=== PATIENT | male | born 1960 | race Caucasian/White ===

== ENCOUNTER 2020-10-06 16:00 | Outpatient (CLI) | payer BC, SELFPAY ==
--- NOTE | 2020-10-27 11:36 | WPDHOMESLEEP ---
Sleep Study - Home Unattended Date of Study: 10/06/20 Ordering Provider: Jak Alvarez PA-C Interpreting Provider: Smiley Morales MD Home Sleep Study Type: Apnea Link Air Height: 1.75 m Weight: 92.986 kg Body Mass Index: 30.2 Neck Circumference (inches): 16 [place]: 20 Reason for Sleep Study loud snoring Sleep History Jaya Olguin has loud snoring that is constant and constantly bothers others. His has complained about this for over 4 years. There is a family history with his father having sleep problems. He frequently awakens from sleep feeling short of breath. He never awakens at night with heartburn, belching or coughing. He does not have trouble sleep with a cold. He frequently wakes up gasping for breath during the night. He constantly has breathing problems at night observed by others. He does not sweat excessively night. He rarely notices his heart pounding or beating irregularly night. He frequently falls asleep during the day, constantly falls asleep involuntarily, frequently falls asleep while driving. He does not fall asleep while exerting physical effort. He does not have loss of muscle tone with strong emotion. He rarely has daytime difficulties due to excessive sleepiness. He does not feel paralyzed on waking or falling asleep. He does not have vivid dreamlike scenes upon awakening or falling asleep. He does not feel afraid to go to sleep. He does not have nightmares. He does not remember his dreams. He occasionally has racing thoughts. He does not feel sad or depressed. He frequently feels anxious. He does not have muscular tension. He rarely notices parts of his body jerking. He does not kick at night. He denies crawling and aching feelings in his legs. He does not have leg pain at night. He denies morning jaw pain and does not grind his teeth during sleep. He is not bothered by pain during the day. He is not awakened by pain at night. He does not wake up feeling stiff in the morning with sore achy muscles are pain in his neck and spine. He has sexual dysfunction, he has gained 10 lb in last year. He has hypertension. Normal bedtime is between 8 and 9:00 p.m. falling asleep in 1 minutes waking twice at night to urinate and get a snack. He stays awake for 20 minutes. He returns to sleep and wakes between 3 and 4 in the morning. His weekend schedule is The same. He estimates getting between 5 and 7 hours of sleep on an average night. He takes naps in the afternoon or evening. A short nap is not refreshing. He is drowsy in the morning for 3 hours or longer. He feels better in the afternoon compared other times a day. Habits: Never smoked tobacco. Caffeine 3 large sodas a day. No alcohol or recreational drugs. [facility] Past Medical History Medical History Cardiac murmur, unspecified Finger fracture HSV-1 infection Insomnia with sleep apnea, unspecified Malignant hypertension Neck mass Family History Family History (Updated 10/27/20 @ 11:40 by Smiley Morales MD) Father Family history of malignant neoplasm, Onset Age: 77 Obstructive sleep apnea Other Family history of coronary artery disease Hypertension Social History Social History Smoking status: Never smoker Second hand tobacco smoke exposure: No Alcohol intake: never Substance use: never Substance use type: does not use Gender identity (if verbalized by the patient): Male Medications Home Medications Medication Instructions Recorded Confirmed Type hydrochlorothiazide 12.5 mg capsule 12.5 mg PO DAILY #90 cap 06/21/20 06/21/20 Rx irbesartan 150 mg tablet 150 mg PO DAILY #7 tablet 06/21/20 06/21/20 Rx irbesartan 300 mg tablet 300 mg PO DAILY #90 tablet 06/21/20 06/21/20 Rx metoprolol succinate 100 mg 100 mg PO DAILY #90 tablet 06/21/20 06/21/20 Rx tablet,extended release 24
[2020-10-27 11:45] VITALS: BMI 30.2
== END 2020-10-06 16:06 | disposition home or self-care (01) ==
LOC: ANHCSM 10-11 09:59
PROVIDERS: PCP Physician Assistant; Visit Provider Physician Assistant
DX: G47.39 Other sleep apnea (principal); R40.0 Somnolence
CPT/HCPCS: 95806

== ENCOUNTER → 2021-05-11 01:37 | Outpatient (CLI) | payer BC, SELFPAY ==
[2021-05-11 15:45] LABS: SARS-CoV-2 RNA PCR Negative
== END ==
PROVIDERS: Visit Provider Internal Medicine Critical Care Medicine
DX: Z01.812 Encounter for preprocedural laboratory examination (principal); Z20.822 Contact with and (suspected) exposure to COVID-19
CPT/HCPCS: C9803; U0003; U0005

== ENCOUNTER 2023-12-05 09:15 | Outpatient (CLI) | payer BC, SELFPAY ==
--- NOTE | 2023-12-05 09:23 | EST_ITS ---
Patient Info Name: Jaya Olguin Age: 63 years : 1960 Gender: Male Ht: 69 in Wt: 209 lbs BSA: 2.18 m2 HR: 53 bpm BP: 178 / 96 mmHg Heart Rhythm: Sinus Rhythm Exam Date: 12/05/2023 9:47 AM Exam Location: Echo Lab Patient Status: Outpatient Admit Date: 12/05/2023 Staff Ordering Physician: Nick Wisdom APRN Attending Provider: Nick Wisdom APRN Exercise Technologist: Beckie Cortes CT Exercise Physician: Julien Reynoso DO Exam Type: CA stress test treadmill Study Info A treadmill exercise stress test was performed. Summary 1. 1. Negative Donato exercise stress test for ischemic ST changes by ECG criteria. However, patient achieved only 78% MPHR for age group which reduces sensitivity of the test. 2. 2. Good functional capacity, achieving 9 METs of workload. 3. 3. Baseline hypertension with hypertensive response to exercise. 4. 4. Appropriate HR response to exercise. 5. 5. Appropriate HR recovery at 1 minute post exercise. 6. 6. No imaging with stress testing. 7. 7. Patient informed of the above results. Protocol: Donato Stress ECG Details Stage: REST Duration (min): 2 min : 10 sec Speed (mph): 0.0 Grade (%): 0 HR (bpm): 53 SBP (mmHg): 178 DBP (mmHg): 96 METS: --- Stage: REST Duration (min): 15 min : 52 sec Speed (mph): 0.0 Grade (%): 0 HR (bpm): 59 SBP (mmHg): 178 DBP (mmHg): 96 METS: --- Stage: STAGE 1 Duration (min): 1 min : 0 sec Speed (mph): 1.7 Grade (%): 10 HR (bpm): 73 SBP (mmHg): 178 DBP (mmHg): 96 METS: --- Stage: STAGE 1 Duration (min): 2 min : 0 sec Speed (mph): 1.7 Grade (%): 10 HR (bpm): 85 SBP (mmHg): 178 DBP (mmHg): 96 METS: --- Stage: STAGE 1 Duration (min): 3 min : 0 sec Speed (mph): 1.7 Grade (%): 10 HR (bpm): 91 SBP (mmHg): 205 DBP (mmHg): 116 METS: --- Stage: STAGE 2 Duration (min): 1 min : 0 sec Speed (mph): 2.5 Grade (%): 12 HR (bpm): 102 SBP (mmHg): 205 DBP (mmHg): 116 METS: --- Stage: STAGE 2 Duration (min): 2 min : 0 sec Speed (mph): 2.5 Grade (%): 12 HR (bpm): 103 SBP (mmHg): 215 DBP (mmHg): 88 METS: --- Stage: STAGE 2 Duration (min): 3 min : 0 sec Speed (mph): 2.5 Grade (%): 12 HR (bpm): 110 SBP (mmHg): 215 DBP (mmHg): 88 METS: --- Stage: STAGE 3 Duration (min): 1 min : 0 sec Speed (mph): 3.4 Grade (%): 14 HR (bpm): 122 SBP (mmHg): 227 DBP (mmHg): 89 METS: --- Stage: STAGE 3 Duration (min): 1 min : 10 sec Speed (mph): 3.4 Grade (%): 14 HR (bpm): 124 SBP (mmHg): 227 DBP (mmHg): 89 METS: --- Stage: RECOVERY Duration (min): 0 min : 49 sec Speed (mph): 0.0 Grade (%): 0 HR (bpm): 105 SBP (mmHg): 227 DBP (mmHg): 89 METS: --- Stage: RECOVERY Duration (min): 1 min : 49 sec Speed (mph): 0.0 Grade (%): 0 HR (bpm): 88 SBP (mmHg): 227 DBP (mmHg): 89 METS: --- Stage: RECOVERY Duration (min): 2 min
== END 2023-12-05 09:16 | disposition home or self-care (01) ==
PROVIDERS: PCP Family Medicine; Visit Provider Student in an Organized Health Care Education/Training Program
DX: R06.09 Other forms of dyspnea (principal)
CPT/HCPCS: 93017

== ENCOUNTER 2023-12-17 08:38 | Outpatient (CLI) | payer BC, SELFPAY ==
--- NOTE | ~2023-12-17 | XR_ITS ---
EXAMINATION: XR chest 2V 12/17/2023 09:52 INDICATION: Shortness of breath PROCEDURE: 2 view chest COMPARISON: 12/07/2027 FINDINGS: The lungs are clear. The cardiomediastinal silhouette is within normal limits. There are no pleural effusions. There is no pneumothorax suspected. IMPRESSION: 1: NO ACUTE CARDIOPULMONARY DISEASE. Reviewed, dictated and finalized at location B.
--- NOTE | 2023-12-17 08:41 | ECHO_ITS ---
Patient Info Name: Jaya Olguin Age: 63 years : 1960 Gender: Male Ht: 69 in Wt: 208 lbs BSA: 2.17 m2 HR: 52 bpm BP: 169 / 92 mmHg Heart Rhythm: Bradycardia Technical Quality: Good Exam Date: 12/17/2023 9:10 AM Exam Location: Echo Lab Patient Status: Outpatient Admit Date: 12/17/2023 Staff Ordering Physician: Julien Reynoso DO Consulting Practice Manager: Toney Sanchez RDCS Attending Provider: Julien Reynoso DO Referring Physician: Nick Wisdom APRN; Exam Type: CA echo doppler color flow Study Info Indications - other forms of dyspnea Complete two-dimensional, color flow and Doppler transthoracic echocardiogram is performed. Summary 1. Complete two-dimensional, color flow and Doppler transthoracic echocardiogram is performed. 2. Left ventricular chamber dimension is normal. 3. Left ventricular systolic function is normal, estimated at 60-65%. 4. There is moderate concentric increased left ventricular wall thickness. 5. The left ventricular diastolic function is normal. 6. E/e' 8 is minimally elevated. 7. Left atrial chamber dimension is mildly enlarged. 8. There is trace aortic valve regurgitation. 9. There is trace mitral valve regurgitation. 10. No pulmonary hypertension, estimated pulmonary arterial systolic pressure is 22 mmHg. Left Ventricle E/e' 8 is minimally elevated. Left ventricular chamber dimension is normal. Left ventricular systolic function is normal, estimated at 60-65%. There is moderate concentric increased left ventricular wall thickness. The left ventricular diastolic function is normal. Right Ventricle Right ventricular systolic function is normal and with normal TAPSE 2.7 cm. Right ventricular chamber dimension is normal. Left Atria Left atrial chamber dimension is mildly enlarged. Right Atria Right atrial chamber dimension is normal. Aortic Valve The aortic valve is trileaflet. There is no aortic valve sclerosis. There is no aortic valve stenosis. There is trace aortic valve regurgitation. Pulmonic Valve There is no pulmonic regurgitation. Mitral Valve There is no mitral valve stenosis. There is trace mitral valve regurgitation. Tricuspid Valve There is no tricuspid valve regurgitation. No pulmonary hypertension, estimated pulmonary arterial systolic pressure is 22 mmHg. Pericardium/Pleural There is no pericardial effusion. Inferior Vena Cava Normal inferior vena cava with >50% collapse upon inspiration consistent with normal right atrial pressure, 5 mmHg. Aorta The aortic root size at the sinus of Valsalva is normal. Left Ventricular Outflow Tract Name Value Normal LVOT 2D LVOT Diameter 2.1 cm LVOT Doppler LVOT Peak Gradient 6 mmHg LVOT Mean Gradient 4 mmHg LVOT VTI 30 cm LVOT VTI/AV VTI Ratio 0.8 LVOT Stroke Volume 106 ml LVOT CO 5.0 l/min LVOT CI 2.3 l/min/m2 Pulmonic Valve Name Value Normal
== END 2023-12-17 08:39 | disposition home or self-care (01) ==
PROVIDERS: PCP Family Medicine; Referring Provider Student in an Organized Health Care Education/Training Program; Visit Provider Internal Medicine Cardiovascular Disease
DX: R06.09 Other forms of dyspnea (principal); R06.02 Shortness of breath
CPT/HCPCS: 71046; 93306